=== PATIENT | female | born 1935 | race Two or more races ===

== ENCOUNTER 2017-01-10 10:21 | Inpatient (IN) | payer MEDICARE, OTHER ==
[~2017-01-10] VITALS: Ht 162.6 cm; Wt 70.8 kg
--- NOTE | 2017-01-10 10:58 | NUR ---
A/O x 4, vss, nad nooted at this time; came in w/ s/p mechanical fall, pt doesn't remember the fall, per pt was found on the floor laying supine, yesterday. Ambulatory, use of cane. evaluating pt.
[2017-01-10 11:28] LABS: BASOPHILS % (AUTO) 0.5 % (0.0-2.0); EOSINOPHILS # (AUTO) 0.1 K/uL (0.0-0.7); EOSINOPHILS % (AUTO) 1.7 % (0.0-7.0); HEMOGLOBIN 13.6 g/dL (12.0-16.0); LYMPHOCYTES # (AUTO) 1.2 K/uL (0.8-4.8); LYMPHOCYTES % (AUTO) 29.5 % (20.5-51.5); MEAN CORPUSCULAR HEMOGLOBIN 31.2 uug (27.0-31.0); MEAN CORPUSCULAR HGB CONC 35 g/dL (32.0-37.0); MEAN CORPUSCULAR VOLUME 89.4 fL (81.0-99.0); MONOCYTES # (AUTO) 0.4 K/uL (0.1-1.30); MONOCYTES % (AUTO) 8.7 % (0.0-11.0); NEUTROPHILS # (AUTO) 2.5 K/uL (1.8-8.9); NEUTROPHILS % (AUTO) 59.6 % (38.5-71.5); PLATELET COUNT (AUTO) 133 K/uL (150-450); RED BLOOD CELL COUNT(AUTO) 4.37 MIL/uL (4.20-5.40); RED CELL DISTRIBUTION WIDTH 12.7 % (11.5-14.5); WHITE BLOOD COUNT (AUTO) 4.2 K/uL (4.0-11.2)
[2017-01-10 11:35] LABS: CALCIUM 8.7 mg/dL (8.5-10.1); CREATININE 0.6 mg/dL (0.6-1.3)
[2017-01-10] MEDS ORDERED: DORZ10DR8 OP (11:35)
[2017-01-10] MEDS ORDERED: BUPR-51 PO (11:35)
[2017-01-10] MEDS ORDERED: DEXL60CA3 PO (11:35)
[2017-01-10] MEDS ORDERED: FLUT16SP NS (11:35)
[2017-01-10] MEDS ORDERED: HYDR28CR48 TP (11:35)
[2017-01-10] MEDS ORDERED: DICL100G3 TP (11:35)
[2017-01-10] MEDS ORDERED: SUMA100T16 PO (11:35)
[2017-01-10] MEDS ORDERED: ECON15CR2 TP (11:35)
[2017-01-10] MEDS ORDERED: CHOL500050 PO (11:35)
[2017-01-10] MEDS ORDERED: ROSU10TA PO (11:35)
[2017-01-10] MEDS ORDERED: OMEG-72 PO (11:35)
[2017-01-10] MEDS ORDERED: BRIM5DRO2 RIGHTEYE (11:35)
[2017-01-10] MEDS ORDERED: ESCI20TA PO (11:35)
[2017-01-10] MEDS ORDERED: KETO15CR TP (11:35)
[2017-01-10] MEDS ORDERED: RANI150C4 PO (11:35)
[2017-01-10] MEDS ORDERED: ASPI81TA31 PO (11:35)
[2017-01-10 11:41] LABS: ALBUMIN 3.2 g/dL (3.4-5.0); BILIRUBIN,DIRECT 0.1 mg/dL (0.0-0.2); BILIRUBIN,TOTAL 0.5 mg/dL (0.2-1.0); TOTAL PROTEIN, SERUM 6.9 g/dL (6.4-8.2)
--- NOTE | 2017-01-10 13:30 | NUR ---
Dr. Marquez spoke to Dr. Hansen, pt admitted to Tele. Transfered in a stable condition.
[2017-01-10 14:36] LABS: *BILIRUBIN,URIN NEGATIVE (NEGATIVE); *BLOOD, URINE Trace-lysed (NEGATIVE); *CLARITY,URINE CLEAR (CLEAR); *COLOR,URINE YELLOW (YELLOW); *KETONES,URINE NEGATIVE (NEGATIVE); *PROTEIN,URINE NEGATIVE (NEGATIVE); *UROBILINOGEN,URINE 0.2 E.U./dl (NORMAL); LEUKOCYTE ESTERASE ,URINE NEGATIVE (NEGATIVE); NITRITE, URINE NEGATIVE (NEGATIVE); UGLUCOSE NEGATIVE (NEGATIVE)
[2017-01-10 14:46] LABS: BACTERIA,URINE NONE SEEN /HPF (NONE SEEN); SQUAMOUS EPITHELIAL CELL,UR FEW /HPF (NONE SEEN); WBC,URINE 0-3 /HPF (0-3)
[2017-01-10 15:15] VITALS: BP 112/61
[2017-01-10] MEDS ORDERED: HYDROCORTISONE 1% CREAM 30 GM TUBE TP PRN (16:15)
[2017-01-10] MEDS ORDERED: KETOCONAZOLE 2% CREAM 30 GM TUBE TP SCH (17:00)
[2017-01-10] MEDS: ECONAZOLE CREAM 30 GM TUBE TP SCH (17:26)
[2017-01-10] MEDS: DORZOLAMIDE 2% OPHT DROP 10 ML BOTTLE EACHEYE SCH (17:27)
[2017-01-10] MEDS: FLUTICASONE PROP NASAL SPRAY 16 GM BOTTLE NS SCH (17:27)
[2017-01-10] MEDS ORDERED: ACETAMINOPHEN 325 MG TABLET PO PRN ×2 (18:00→20:45)
--- NOTE | 2017-01-10 19:30 | NUR ---
received pt in bed awake and alert primary language is farsi. on room air, in no acute distress. brp with assist and uses cane. call light within reach. safety measures are in place. will continue to monitor.
[2017-01-10 20:00] VITALS: BP 109/69
[2017-01-10] MEDS ORDERED: ONDANSETRON 4 MG/2 ML VIAL IV PRN (20:45)
[2017-01-10] MEDS ORDERED: MAGNESIUM HYDROXIDE 30 ML LIQUID UDC PO PRN (20:45)
[2017-01-10] MEDS ORDERED: HYDROCODONE/APAP 5-325MG TABLET PO PRN (20:45)
[2017-01-10] MEDS ORDERED: ESCITALOPRAM OXALATE 10 MG TABLET PO SCH (21:00)
[2017-01-10] MEDS ORDERED: Medication Not On Formulary EA (Escitalopram Oxalate (Lexapro) 20 MG) PO SCH (21:00)
[2017-01-10] MEDS ORDERED: ATORVASTATIN 20 MG TABLET PO SCH (21:00)
[2017-01-10] MEDS ORDERED: Medication Not On Formulary EA (Rosuvastatin Calcium (Crestor) 10 MG) PO SCH (21:00)
[2017-01-11] VITALS: BP 104/59
[2017-01-11 04:00] VITALS: BP 105/63
--- NOTE | 2017-01-11 06:23 | NUR ---
resting comfortably in bed, in no acute distress. no dizziness reported. no c/o of pain. safety and comfort measures provided
[2017-01-11] MEDS ORDERED: PANTOPRAZOLE SODIUM 40 MG TABLET.DR PO SCH (07:00)
[2017-01-11 08:02] LABS: BASOPHILS % (AUTO) 0.6 % (0.0-2.0); EOSINOPHILS # (AUTO) 0.1 K/uL (0.0-0.7); EOSINOPHILS % (AUTO) 2.8 % (0.0-7.0); HEMATOCRIT 39.4 % (37.0-47.0); HEMOGLOBIN 13.8 g/dL (12.0-16.0); LYMPHOCYTES # (AUTO) 1.2 K/uL (0.8-4.8); LYMPHOCYTES % (AUTO) 33.4 % (20.5-51.5); MEAN CORPUSCULAR HEMOGLOBIN 31.7 uug (27.0-31.0); MEAN CORPUSCULAR HGB CONC 35 g/dL (32.0-37.0); MEAN CORPUSCULAR VOLUME 90.3 fL (81.0-99.0); MONOCYTES # (AUTO) 0.3 K/uL (0.1-1.30); MONOCYTES % (AUTO) 8.6 % (0.0-11.0); NEUTROPHILS % (AUTO) 54.6 % (38.5-71.5); PLATELET COUNT (AUTO) 132 K/uL (150-450); RED BLOOD CELL COUNT(AUTO) 4.36 MIL/uL (4.20-5.40); RED CELL DISTRIBUTION WIDTH 12.6 % (11.5-14.5); WHITE BLOOD COUNT (AUTO) 3.6 K/uL (4.0-11.2)
[2017-01-11] MEDS ORDERED: buPROPion XL 150 MG TAB.SR.24H PO SCH (09:00)
[2017-01-11] MEDS ORDERED: ASPIRIN 81 MG TAB.CHEW PO SCH (09:00)
[2017-01-11] MEDS: ECONAZOLE CREAM 30 GM TUBE TP SCH (09:00)
[2017-01-11 09:11] LABS: THYROID STIMULATING HORMONE 2.747 mIU/mL (0.358-3.740)
[2017-01-11] MEDS: FLUTICASONE PROP NASAL SPRAY 16 GM BOTTLE NS SCH (10:43)
[2017-01-11] MEDS: DORZOLAMIDE 2% OPHT DROP 10 ML BOTTLE EACHEYE SCH (10:43)
[2017-01-11 10:53] LABS: ALBUMIN 3.5 g/dL (3.4-5.0); BILIRUBIN,TOTAL 0.6 mg/dL (0.2-1.0); CALCIUM 8.2 mg/dL (8.5-10.1); CREATININE 0.7 mg/dL (0.6-1.3); PHOSPHOROUS 3.6 mg/dL (2.5-4.9); POTASSIUM 4.3 mmol/L (3.5-5.1); TOTAL PROTEIN, SERUM 7.3 g/dL (6.4-8.2)
[2017-01-11 11:12] VITALS: BP 110/59
--- NOTE | 2017-01-11 14:00 | NUR ---
HOME INSTRUCTIONS REVIEWED WITH PT. IV D/C'D. STATES ANXIOUS TO GO HOME. PT. DOES NOT WISH TO RECEIVE FLU VACCINE AT THIS TIME--WILL FOLLOW-UP WITH PCP. DISCHARGED TO FOR HOME.
== END 2017-01-11 14:00 | disposition home or self-care (01) | DRG 74 ==
LOC: ER 10:21 → TELE 13:26 → MED 01-11 11:12
PROVIDERS: ADMIT Internal Medicine; ATTEND Internal Medicine
DX: G62.9 Polyneuropathy, unspecified (principal); W01.0XXA Fall on same level from slipping, tripping and stumbling without subsequent striking against object, initial encounter; D64.9 Anemia, unspecified; Y92.000 Kitchen of unspecified non-institutional (private) residence as the place of occurrence of the external cause; E78.5 Hyperlipidemia, unspecified; E78.00 Pure hypercholesterolemia, unspecified; F32.9 Major depressive disorder, single episode, unspecified; D69.6 Thrombocytopenia, unspecified; M19.90 Unspecified osteoarthritis, unspecified site; M48.02 Spinal stenosis, cervical region; Z96.659 Presence of unspecified artificial knee joint; Z98.890 Other specified postprocedural states; M48.04 Spinal stenosis, thoracic region; H40.9 Unspecified glaucoma; D72.819 Decreased white blood cell count, unspecified
CPT/HCPCS: 36415; 70030-TC; 70450; 71010; 72125; 73590; 83735; 84100; 84443; 85025; 85730; 86140; 87086; 93005; A4663; J3535

== ENCOUNTER 2018-05-29 11:48 | Emergency (ER) | payer MEDICARE, OTHER ==
[~2018-05-29] VITALS: Ht 162.6 cm; Wt 70.8 kg
[~2018-05-29 11:48] MED LIST: ASPI81TA31 PO; BRIM5DRO2 RIGHTEYE; BUPR-51 PO; CHOL500050 PO; DEXL60CA3 PO; DICL100G16 TP; DORZ10DR10 OP; ECON15CR2 TP; ESCI20TA PO; FLUT16SP NS; HYDR28CR48 TP; KETO15CR2 TP; OMEG-72 PO; RANI150C4 PO; ROSU10TA PO; SUMA100T16 PO
[2018-05-29] MEDS ORDERED: ACETAMINOPHEN ES 500 MG TABLET PO ONE (12:15)
[2018-05-29] MEDS ORDERED: ACETAMINOPHEN ES 500 MG TABLET ONE (12:18)
--- NOTE | 2018-05-29 12:48 | NUR ---
Patient discharged to home in stable conditon. Written and verbal after care instructions given. Patient and grandson verbalizes understanding of instructions.
[2018-05-29 12:51] VITALS: BP 116/78
== END 2018-05-29 12:53 | disposition home or self-care (01) ==
LOC: ER 11:51
DX: S83.92XA Sprain of unspecified site of left knee, initial encounter (principal); M54.5 Low back pain; E78.00 Pure hypercholesterolemia, unspecified; W10.9XXA Fall (on) (from) unspecified stairs and steps, initial encounter; Y93.89 Activity, other specified; Y92.89 Other specified places as the place of occurrence of the external cause; Y99.8 Other external cause status
CPT/HCPCS: 72110; 73564; 99284; A4663; A9150

== ENCOUNTER 2019-07-03 12:46 | Emergency (ER) | payer MEDICARE, MEDICAID ==
[~2019-07-03] VITALS: Ht 162.6 cm; Wt 72.6 kg
[~2019-07-03 12:46] MED LIST changes: -DEXL60CA3 PO; -ECON15CR2 TP; -KETO15CR2 TP; -ROSU10TA PO; +ROSU10TA2 PO
--- NOTE | 2019-07-03 12:59 | NUR ---
FORREST ESPARZA AT BEDSIDE FOR MSE.
[2019-07-03] MEDS ORDERED: HYDROCODONE/APAP 5-325MG TABLET ONE (13:08)
[2019-07-03] MEDS ORDERED: HYDROCODONE/APAP 5-325MG TABLET PO ONE (13:15)
--- NOTE | 2019-07-03 14:28 | NUR ---
Patient discharged to home in stable conditon. Written and verbal after care instructions given. Patient verbalizes understanding of instructions. ALL BELONGINGS W/ PT. PT SELF-AMBULATED W/O DIFFICULTY.
[2019-07-03 14:29] VITALS: BP 122/78
== END 2019-07-03 14:30 | disposition home or self-care (01) ==
LOC: ER 12:46
DX: S30.0XXA Contusion of lower back and pelvis, initial encounter (principal); E78.00 Pure hypercholesterolemia, unspecified; F32.9 Major depressive disorder, single episode, unspecified; Z79.899 Other long term (current) drug therapy; Z79.82 Long term (current) use of aspirin; W18.39XA Other fall on same level, initial encounter; Y93.89 Activity, other specified; Y92.89 Other specified places as the place of occurrence of the external cause; Y99.8 Other external cause status
CPT/HCPCS: 72192; A4663